=== PATIENT | male | born 1985 ===

== ENCOUNTER 2018-03-16 15:46 | Emergency (ER) | payer OTHER ==
[2018-03-16 15:56] VITALS: BP 137/81
--- NOTE | 2018-03-16 16:41 | RAD ---
INDICATION: Right elbow injury. TECHNIQUE: 4 views of the right elbow were obtained. FINDINGS: There is focal soft tissue swelling posterior to the distal humerus and proximal olecranon process. The bones are in normal alignment. No joint effusion or fracture is seen. IMPRESSION: SOFT TISSUE SWELLING, NO FRACTURE IS SEEN.
--- NOTE | 2018-03-16 16:56 | UC ---
Elbow Pain - HPI Summary HPI Summary: 32 yo male had a what he considers a trivial injury to right elbow occurred about 2 days ago since then it has become red and painful no broken skin - History of Current Complaint Chief Complaint: UCUpperExtremity Stated Complaint: ELBOW INJURY Time Seen by Provider: 03/16/18 16:15 Hx Obtained From: Patient Onset/Duration: Days Severity Initially: Mild Severity Currently: Mild Pain Intensity: 4 Pain Scale Used: 0-10 Numeric Location Of Pain: Is Discrete @ - olcranon Character: Dull, Aching Aggravating Factor(s): Other - resting on surface Alleviating Factor(s): Nothing Associated Signs And Symptoms: Positive: Swelling, Redness - Allergies/Home Medications Allergies/Adverse Reactions: Allergies Allergy/AdvReac Type Severity Reaction Status Date / Time No Known Allergies Allergy Verified 08/11/17 10:35 PMH/Surg Hx/FS Hx/Imm Hx Previously Healthy: Yes - Surgical History Surgical History: Yes Surgery Procedure, Year, and Place: Right knee surgery repair torn meniscus 2004,. 2nd surgery was a removal x2 - Family History Known Family History: Positive: Hypertension - Social History Alcohol Use: Daily Substance Use Type: None Smoking Status (MU): Light Every Day Tobacco Smoker Amount Used/How Often: smoked for 10 years 5 cigarettes a day Review of Systems Constitutional: Negative Skin: Negative Eyes: Negative ENT: Negative Respiratory: Negative Cardiovascular: Negative Gastrointestinal: Negative Genitourinary: Negative Motor: Negative Neurovascular: Negative Musculoskeletal: Arthralgia Neurological: Negative Psychological: Negative Is Patient Immunocompromised?: No All Other Systems Reviewed And Are Negative: Yes Physical Exam Triage Information Reviewed: Yes Appearance: Well-Appearing, No Pain Distress, Well-Nourished Vital Signs: Initial Vital Signs Temp 99.4 F 03/16/18 15:51 Pulse 104 03/16/18 15:51 Resp 16 03/16/18 15:51 BP 137/81 03/16/18 15:51 Pulse Ox 98 03/16/18 15:51 Vital Signs Reviewed: Yes Eyes: Positive: Conjunctiva Clear ENT: Positive: Hearing grossly normal. Negative: Nasal congestion, Nasal drainage, Tonsillar exudate, Trismus, Muffled voice, Hoarse voice Neck: Positive: Supple, Nontender, No Lymphadenopathy Respiratory: Positive: Lungs clear, Normal breath sounds, No respiratory distress Cardiovascular: Positive: RRR, No Murmur Musculoskeletal: Positive: ROM Intact, Edema @ - over right olecranon/red and somewhat warm, skin intact Neurological: Positive: Alert Psychological Exam: Normal Skin Exam: Normal Diagnostics - Radiology No standard instances Xray Interpretation: Positive (See Comments) - swollen Radiology Interpretation Completed By: Radiologist Elbow Pain Course/Dx - Differential Dx/Diagnosis Provider Diagnoses: right olecranon bursitis Discharge - Sign-Out/Discharge Documenting (check all that apply): Discharge/Admit/Transfer - Discharge Plan Condition: Stable Disposition: HOME Prescriptions: Cephalexin CAP* [Keflex CAP*] 500 mg PO QID #28 cap Patient Education Materials: Elbow Bursitis (ED) Referrals: [facility] [Outside] - As Soon As Possible Additional Instructions: aleve 2 twice daily with food to er for new or worsening symptoms - Billing Disposition and Condition Condition: STABLE Disposition: Home
== END 2018-03-16 16:55 | disposition home or self-care (01) ==
LOC: UCEAST 15:46
DX: M70.21 Olecranon bursitis, right elbow (principal); F17.210 Nicotine dependence, cigarettes, uncomplicated
CPT/HCPCS: 99212; G0463